=== PATIENT | female | born 1975 | race Hispanic/Latino ===

== ENCOUNTER 2022-04-06 20:07 | Emergency (ER) | payer BC, OTHER ==
[2022-04-06 20:50] LABS: Urine Blood 2+ (Negative); Urine Glucose Negative (Negative); Urine Protein Negative (Negative); Urine Specific Gravity 1.025 (1.005-1.030)
[2022-04-06] MEDS ORDERED: MORPHINE 4 MG/ML SYR ONE (20:58)
[2022-04-06] MEDS ORDERED: ONDANSETRON 4 MG/2 ML VIAL ONE (20:59)
[2022-04-06] MEDS ORDERED: NA CHLORIDE 0.9% 1,000 ML ONE (20:59)
[2022-04-06 21:00] LABS: Absolute Lymphocytes (CBC) 3.3 K/uL (0.7-4.9); Hematocrit 38.1 % (36.0-45.0); Lymphocytes % 27.3 % (15.3-44.8); MCV 86.1 fL (80-100); MPV 7.2 fL (7.6-11.3); RBC Red Blood Cell Count 4.42 M/uL (3.86-4.86)
[2022-04-06 21:20] LABS: Albumin 3.7 g/dL (3.4-5.0); Bilirubin Total 0.4 mg/dL (0.2-1.0); Potassium 3.3 mmol/L (3.5-5.1); Protein, Total 7.7 g/dL (6.4-8.2)
--- NOTE | 2022-04-06 21:26 | RAD REPORT ---
EXAM DESCRIPTION: CT - Abdomen Pelvis Wo Contrast - 04/06/2022 9:18 pm CLINICAL HISTORY: Abdominal pain. RLQ abdominal pain COMPARISON: No comparisons TECHNIQUE: CT imaging of the abdomen and pelvis was performed without contrast. Solid organ, bowel a nd vascular assessment is limited due to lack of IV and oral contrast. All CT scans are performed using dose optimization technique as appropriate and may include automated exposure control or mA/KV adjustment according to patient size. FINDINGS: The lower lung canales are clear.Cholecystectomy clips. The liver, spleen, pancreas, adrenal glands and kidneys are within normal limits for a limited non-co ntrast examination. No bowel obstruction, free air, free fluid or abscess. The appendix is normal. The osseous structures are within normal limits. IMPRESSION: No acute intra-abdominal or pelvic findings. A limited non-contrast examination was performed as detailed.
[2022-04-06 22:29] LABS: Urine Specific Gravity/Preg 1.025 (1.005-1.030)
--- NOTE | 2022-04-06 23:39 | EDPHYS ---
Physician Documentation [facility] Name: Brenda Cheney Age: 47 yrs Sex: Female : 1975 Arrival Date: 04/06/2022 Time: 20:08 Bed 26 Private MD: GELY Physician Cal Sena HPI: 04/06 23:31 This 47 yrs old Female presents to ER via Ambulatory with complaints of micky Abdominal Pain. 23:31 The patient presents with abdominal pain in the lower abdomen, in the left upper micky quadrant, in the left lower quadrant, abdominal distention in the upper abdomen, in the lower abdomen. Onset: The symptoms/episode began/occurred 1 day(s) ago. The symptoms do not radiate. Associated signs and symptoms: none. The symptoms are described as burning, constant. Modifying factors: The symptoms are alleviated by nothing, the symptoms are aggravated by nothing. Severity of pain: At its worst the pain was mild moderate in the emergency department the pain is unchanged. The patient has not experienced similar symptoms in the past. 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 - Social history:: Patient/guardian denies using alcohol, tobacco products, Smoking status: Patient reports the use of cigarette tobacco products, Patient denies any tobacco usage or history of. - Family history:: not pertinent. ROS: 23:31 Constitutional: Negative for fever, chills, and weight loss, Eyes: Negative for injury, micky pain, redness, and discharge, ENT: Negative for injury, pain, and discharge, Neck: Negative for injury, pain, and swelling, Cardiovascular: Negative for chest pain, palpitations, and edema, Respiratory: Negative for shortness of breath, cough, wheezing, and pleuritic chest pain, Back: Negative for injury and pain, : Negative for injury, bleeding, discharge, and swelling, MS/Extremity: Negative for injury and deformity, Skin: Negative for injury, rash, and discoloration, Neuro: Negative for headache, weakness, numbness, tingling, and seizure, Psych: Negative for depression, anxiety, suicide ideation, homicidal ideation, and hallucinations, Allergy/Immunology: Negative for hives, rash, and allergies, Endocrine: Negative for neck swelling, polydipsia, polyuria, polyphagia, and marked weight changes, Hematologic/Lymphatic: Negative for swollen nodes, abnormal bleeding, and unusual bruising. 23:31 Abdomen/GI: Positive for abdominal pain, nausea and vomiting, of the posterior aspect of left lateral abdomen, anterior aspect of left lateral abdomen, left upper quadrant and left lower quadrant. Exam: 23:31 Constitutional: This is a well developed, well nourished patient who is awake, alert, micky and in no acute distress. Head/Face: Normocephalic, atraumatic. Eyes: Pupils equal round and reactive to light, extra-ocular motions intact. Lids and lashes normal. Conjunctiva and sclera are non-icteric and not injected. Cornea within normal limits. Periorbital areas with no swelling, redness, or edema. ENT: Nares patent. No nasal discharge, no septal abnormalities noted. Tympanic membranes are normal and external auditory canals are clear. Oropharynx with no redness, swelling, or masses, exudates, or evidence of obstruction, uvula midline. Mucous membranes moist. Neck: Trachea midline, no thyromegaly or masses palpated, and no cervical lymphadenopathy. Supple, full range of motion without nuchal rigidity, or vertebral point tenderness. No Meningismus. Chest/axilla: Normal chest wall appearance and motion. Nontender with no deformity. No lesions are appreciated. Cardiovascular: Regular rate and rhythm with a normal S1 and S2. No gallops, murmurs, or rubs. Normal PMI, no JVD. No pulse deficits. Respiratory: Lungs have equal breath sounds bilaterally, clear to auscultation and percussion. No rales, rhonchi or wheezes noted. No increased work of breathing, no retractions or nasal flaring. Back: No spinal tenderness. No costovertebral tenderness. Full range of motion. Skin: Warm, dry with normal turgor. Normal color with no rashes, no lesions, and no evidence of cellulitis. MS/ Extremity: Pulses equal, no cyanosis. Neurovascular intact. Full, normal range of motion. Neuro: Awake and alert, GCS 15, oriented to person, place, time, and situation. Cranial nerves II-XII grossly intact. Motor strength 5/5 in all extremities. Sensory grossly intact. Cerebellar exam normal. Normal gait. Psych: Awake, alert, with orientation to person, place and time. Behavior, mood, and affect are within normal limits. 23:31 Abdomen/GI: Inspection: abdomen appears normal, Bowel sounds: normal, Palpation: mild abdominal tenderness, in the left upper quadrant and left lower quadrant. Vital Signs: 20:22 BP 156 / 87; Pulse 86; Resp 20; Temp 98.7; Pulse Ox 100% on R/A; Pain 10/10; eh3 21:07 BP 148 / 81; Pulse 72; Resp 16; Pulse Ox 98% on R/A; eh3 21:47 BP 190 / 82; Pulse 89; Resp 16; Pulse Ox 98% on R/A; Pain 5/10; eh3 22:56 BP 127 / 64; Pulse 89; Resp 16; Pulse Ox 99% on R/A; eh3 23:49 BP 118 / 61; Pulse 88; Resp 20; Pulse Ox 100% on R/A; bh1 MDM: 20:32 Patient medically screened. micky 23:37 Differential diagnosis: bowel obstruction, diverticulitis, Endometriosis, non-specific micky abd pain, Pyelonephritis, Ureterolithiasis, urinary tract infection. Data reviewed: vital signs, nurses notes, lab test result(s), radiologic studies, CT scan. Data interpreted: site monitor: rate is 89 beats/min, rhythm is regular, Pulse oximetry: on room air. Test interpretation: by ED physician or midlevel provider:. Counseling: I had a detailed discussion with the patient and/or guardian regarding: the historical points, exam findings, and any diagnostic results supporting the discharge/admit diagnosis, lab results, radiology results, the need for outpatient follow up, for definitive care, a family practitioner. 04/06 20:35 Order name: CBC with Diff; Complete Time: 21:08 micky 04/06 20:35 Order name: CMP; Complete Time: 21:26 micky 04/06 20:35 Order name: Lipase; Complete Time: 21:26 micky 04/06 20:35 Order name: CT Abd/Pelvis - Without Contrast; Complete Time: 21:31 micky 04/06 20:50 Order name: Urine Dipstick-Ancillary; Complete Time: 20:53 EDMS 04/06 20:50 Order name: Urine --Ancillary (enter results); Complete Time: 22:41 [facility] 04/06 20:35 Order name: IV Saline Lock; Complete Time: 21:02 [facility] 04/06 20:35 Order name: Labs collected and sent; Complete Time: 21:02 [facility] 04/06 20:35 Order name: Urine Dipstick-Ancillary (obtain specimen); Complete Time: 20:50 [facility] 04/06 20:35 Order name: Urine Test (obtain specimen); Complete Time: 20:50 [facility] Administered Medications: 21:02 Drug: morphine 4 mg Route: IVP; Infused Over: 4 mins; Site: right antecubital; [facility] 04/07 00:09 Follow up: Response: No adverse reaction [facility] 04/06 21:03 Drug: NS 0.9% 1000 ml Route: IV; Rate: 1 bolus; Site: right antecubital; [facility] 04/07 00:09 Follow up: IV Status: Completed infusion; IV Intake: 1000ml [facility] 04/06 21:03 Drug: Zofran (Ondansetron) 4 mg Route: IVP; Site: right antecubital; [facility] 04/07 00:09 Follow up: Response: No adverse reaction [facility] 04/06 23:53 Drug: Rocephin (cefTRIAXone) 1 grams Route: IV; Rate: per protocol; Site: right [facility] antecubital; 04/07 00:09 Follow up: IV Status: Completed infusion; IV Intake: 10ml [facility] 04/06 23:53 Drug: Ketorolac 30 mg Route: IVP; Site: right antecubital; [facility] 04/07 00:09 Follow up: Response: No adverse reaction [facility] Disposition Summary: 04/06/22 23:38 Discharge Ordered Location: Home micky Problem: new micky Symptoms: have improved micky Condition: Stable micky Diagnosis - Abdominal pain, unspecified - left sided micky - Hematuria, unspecified micky Followup: micky - With: Private Physician - When: 2 - 3 days - Reason: Recheck today's complaints, Continuance of care, Re-evaluation by your physician Discharge Instructions: - Discharge Summary Sheet micky - Abdominal Pain, Adult micky - Hematuria, Adult micky - Abdominal Pain, Adult, [id number] [facility] Forms: - Medication Reconciliation Form micky - Thank You Letter micky - Antibiotic Education micky - Prescription Opioid Use [facility] Prescriptions: - Zofran 4 mg Oral Tablet - take 1 tablet by ORAL route every 12 hours As needed; 20 tablet; Refills: 0, [facility] Product Selection Permitted - Cipro 500 mg Oral Tablet - take 1 tablet by ORAL route every 12 hours for 7 days; 14 tablet; Refills: 0, [facility] Product Selection Permitted - dicyclomine 20 mg Oral Tablet - take 1 tablet by ORAL route 4 times per day; 28 tablet; Refills: 0, Product [facility] Selection Permitted Signatures: Dispatcher [employer] EDCal Milligan MD MD cha Attema, Lee, FOOD RUNNER-C FOOD RUNNER-[facility] Nataliia Castillo [facility] Melissa Arrieta RN [facility] Corrections: (The following items were deleted from the chart) 04/06 20:33 20:28 PSHx: Uterine ablation 5 years ago; 3 3
--- NOTE | 2022-04-06 23:39 | ER ---
Nurse's Notes [facility] Name: Brenda Cheney Age: 47 yrs Sex: Female : 1975 Arrival Date: 04/06/2022 Time: 20:08 Bed 26 Private MD: Diagnosis: Abdominal pain, unspecified-left sided;Hematuria, unspecified Presentation: 04/06 20:22 Chief complaint: Patient states: left lower quadrant pain. Started 2 days ago. Worsened eh3 this afternoon. Coronavirus screen: Vaccine status: Patient reports being unvaccinated. Ebola Screen: No symptoms or risks identified at this time. Initial Sepsis Screen: Does the patient meet any 2 criteria? No. Patient's initial sepsis screen is negative. Does the patient have a suspected source of infection? No. Patient's initial sepsis screen is negative. Risk Assessment: Do you want to hurt yourself or someone else? Patient reports no desire to harm self or others. Onset of symptoms was April 04, 2022. 20:22 Method Of Arrival: Ambulatory eh3 20:22 Acuity: DENISE 3 eh3 Triage Assessment: 20:15 General: Appears distressed, uncomfortable, Behavior is cooperative. Pain: Complains of eh3 pain in left lower quadrant Pain does not radiate. Pain currently is 10 out of 10 on a pain scale. Quality of pain is described as sharp, Pain began 1 day ago. Is continuous. EENT: No signs and/or symptoms were reported regarding the EENT system. Neuro: Level of Consciousness is awake, alert, obeys commands, Oriented to person, place, time, situation. Cardiovascular: Capillary refill < 3 seconds Patient's skin is warm and dry. Respiratory: Airway is patent Respiratory effort is even, labored. GI:. GI: Reports lower abdominal pain, bloating, constipation. : No signs and/or symptoms were reported regarding the genitourinary system. Derm: No signs and/or symptoms reported regarding the dermatologic system. Musculoskeletal: No signs and/or symptoms reported regarding the musculoskeletal system. 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 - Social history:: Patient/guardian denies using alcohol, tobacco products, Smoking status: Patient reports the use of cigarette tobacco products, Patient denies any tobacco usage or history of. - Family history:: not pertinent. Screenin:33 Abuse screen: Denies threats or abuse. Denies injuries from another. Nutritional eh3 screening: No deficits noted. Tuberculosis screening: No symptoms or risk factors identified. Fall Risk None identified. Assessment: 20:33 General:. 3 20:33 Reassessment: No changes from previously documented assessment. 3 20:33 GI: Bowel sounds present X 4 quads. 3 20:33 GI: Abd is soft Abdomen is tender to palpation Guarding noted in left lower quadrant. 3 21:36 GI: Reports epigastric pressure. Started when she raised her arms for the CT scan. 3 Vital Signs: 20:22 BP 156 / 87; Pulse 86; Resp 20; Temp 98.7; Pulse Ox 100% on R/A; Pain 10/10; eh3 21:07 BP 148 / 81; Pulse 72; Resp 16; Pulse Ox 98% on R/A; eh3 21:47 BP 190 / 82; Pulse 89; Resp 16; Pulse Ox 98% on R/A; Pain 5/10; eh3 22:56 BP 127 / 64; Pulse 89; Resp 16; Pulse Ox 99% on R/A; eh3 23:49 BP 118 / 61; Pulse 88; Resp 20; Pulse Ox 100% on R/A; 1 ED Course: 20:08 Patient arrived in ED. as 20:15 Melissa Arrieta, CHRISTINA is Primary Nurse. [facility] 20:15 Arm band placed on right wrist. 3 20:28 Triage completed. 3 20:32 Cal Sena MD is Attending Physician. [facility] 20:33 Patient has correct armband on for positive identification. Bed in low position. Call [facility] light in reach. Side rails up X2. 20:33 No provider procedures requiring assistance completed. 3 21:02 Urine --Ancillary (enter results) Sent. [facility] 21:02 Inserted saline lock: 20 gauge in right antecubital area, using aseptic technique. 3 Blood collected. 21:03 CMP Sent. 3 21:03 Lipase Sent. 3 21:20 CT Abd/Pelvis - Without Contrast In Process Unspecified. EDMS 21:37 Door closed. Noise minimized. Lights dimmed. Warm blanket given. Pillow given. PO eh3 fluids given. Verbal reassurance given. 23:50 No apparent distress. Resting quietly. Awaiting disposition. [facility] 04/07 00:10 IV discontinued, intact, bleeding controlled, No redness/swelling at site. [facility] Administered Medications: 04/06 21:02 Drug: morphine 4 mg Route: IVP; Infused Over: 4 mins; Site: right antecubital; [facility] 04/07 00:09 Follow up: Response: No adverse reaction [facility] 04/06 21:03 Drug: NS 0.9% 1000 ml Route: IV; Rate: 1 bolus; Site: right antecubital; [facility] 04/07 00:09 Follow up: IV Status: Completed infusion; IV Intake: 1000ml [facility] 04/06 21:03 Drug: Zofran (Ondansetron) 4 mg Route: IVP; Site: right antecubital; [facility] 04/07 00:09 Follow up: Response: No adverse reaction [facility] 04/06 23:53 Drug: Rocephin (cefTRIAXone) 1 grams Route: IV; Rate: per protocol; Site: right [address]; 04/07 00:09 Follow up: IV Status: Completed infusion; IV Intake: 10ml [facility] 04/06 23:53 Drug: Ketorolac 30 mg Route: IVP; Site: right antecubital; [facility] 04/07 00:09 Follow up: Response: No adverse reaction [facility] Medication: 04/06 20:33 VIS not applicable for this client. [facility] Intake: 04/07 00:09 IV: 10ml; Total: 10ml. [facility] 00:09 IV: 1000ml; Total: 1010ml. [facility] Outcome: 04/06 23:38 Discharge ordered by MD. weeks 04/07 00:10 Discharged to home ambulatory. [facility] Condition: good Discharge instructions given to patient, family, Instructed on discharge instructions, follow up and referral plans. medication usage, Demonstrated understanding of instructions, follow-up care, medications, Prescriptions given X 3. 00:10 Patient left the ED. [facility] Signatures: Dispatcher [employer] EDCal Milligan MD MD cha Martinez, Amelia as Hall, Erin 3 Melissa Arrieta RN RN [facility] Corrections: (The following items were deleted from the chart) 04/06 20:33 20:28 PSHx: Uterine ablation 5 years ago; eh3 eh3 21:04 20:15 Pain: Complains of pain in right lower quadrant Pain does not radiate. Pain eh3 currently is 10 out of 10 on a pain scale. Quality of pain is described as sharp, Pain began 1 day ago. Is continuous, eh3 21: 20:22 Chief complaint: Patient states: right lower quadrant pain. Started 2 days ago. eh3 Worsened this afternoon. eh3 : 21:05 Inserted saline lock: 20 gauge in right antecubital area, using aseptic eh3 technique. eh3 : 21:05 Inserted saline lock: 20 gauge in right antecubital area, using aseptic eh3 technique. Blood collected. eh3 21:46 21:05 GI: Bowel sounds present X 4 quads. eh3 eh3
[2022-04-06] MEDS ORDERED: CEFTRIAXONE 1000 MG/VIAL ONE (23:46)
[2022-04-06] MEDS ORDERED: KETOROLAC 30 MG/ML INJ ONE (23:47)
[2022-04-07 00:45] VITALS: TEMP 98.7
[2022-04-07 00:51] VITALS: BP 118/61; O2SAT 100
== END 2022-04-07 00:10 | disposition home or self-care (01) ==
LOC: ER 20:07
DX: R10.9 Unspecified abdominal pain (principal); R31.9 Hematuria, unspecified; Z72.0 Tobacco use
CPT/HCPCS: 96365; 96361; 85025; 36415; 81025; 81003; 83690; 80053; 74176; 96375; 99284; J7030; J2405